=== PATIENT | female | born 1950 | race African-American/Black ===

== ENCOUNTER 2022-03-27 22:37 | Observation (INO) | payer MEDICARE ==
[2022-03-27] MEDS ORDERED: Senokot S 8.6-50 MG TAB PO PRN (22:50)
[2022-03-27] MEDS ORDERED: Ondansetron PF 4 MG/2 ML Vial IVP PRN (22:50)
[2022-03-27] MEDS ORDERED: HYDROcodone/Acetaminophen 5/325 mg Tablet PO PRN (22:50)
[2022-03-27] MEDS ORDERED: Acetaminophen 325 MG TAB PO PRN (22:50)
[2022-03-27] MEDS ORDERED: Calcium Carbonate 500 MG ChewTAB PO PRN (22:50)
[2022-03-27] MEDS ORDERED: Metoprolol Tartrate 25 MG TAB PO SCH (23:00)
[2022-03-27 23:22] VITALS: BMI 42.5
[2022-03-28 05:29] LABS: Anion Gap 12 mmol/L (10-20); BUN (Urea Nitrogen) 14 mg/dL (9.8-20.1); Calc. Creatinine Clearance 123 mL/min (70-130); Calcium 9.5 mg/dL (7.8-10.44); Carbon Dioxide 27 mmol/L (23-31); Chloride 107 mmol/L (98-107); Estimated GFR 88; Glucose 107 mg/dL (80-115); Magnesium 2.1 mg/dL (1.6-2.6); Phosphorus 4.1 mg/dL (2.3-4.7); Potassium 4.1 mmol/L (3.5-5.1); Sodium 142 mmol/L (136-145)
[2022-03-28] MEDS ORDERED: metFORMIN 500 MG TAB PO SCH (08:00)
[2022-03-28] MEDS ORDERED: Aspirin 81 mg Enteric Coated Tablet PO SCH (09:00)
[2022-03-28] MEDS ORDERED: Amlodipine 5 MG TAB PO SCH (09:00)
[2022-03-28] MEDS ORDERED: Famotidine 20 MG TAB PO SCH (09:00)
[2022-03-28] MEDS ORDERED: Valsartan 80 MG TAB PO SCH (09:00)
[2022-03-28] MEDS ORDERED: Ezetimibe 10 MG TAB PO SCH (09:00)
[2022-03-28] MEDS ORDERED: Enoxaparin Sodium 40 MG/0.4 ML SYRINGE SC SCH (09:00)
[2022-03-28 11:40] VITALS: BP 114/60; TEMP 97.4
== END 2022-03-28 12:50 | disposition home or self-care (01) ==
LOC: CSHTELE 22:37
PROVIDERS: ADMIT Student in an Organized Health Care Education/Training Program; ATTEND Internal Medicine
DX: R07.89 Other chest pain (principal); I95.9 Hypotension, unspecified; I49.3 Ventricular premature depolarization; R00.2 Palpitations; I16.0 Hypertensive urgency; I12.9 Hypertensive chronic kidney disease with stage 1 through stage 4 chronic kidney disease, or unspecified chronic kidney disease; E11.22 Type 2 diabetes mellitus with diabetic chronic kidney disease; N18.2 Chronic kidney disease, stage 2 (mild); E11.65 Type 2 diabetes mellitus with hyperglycemia; K21.9 Gastro-esophageal reflux disease without esophagitis; E78.5 Hyperlipidemia, unspecified; Z20.822 Contact with and (suspected) exposure to COVID-19; Z79.84 Long term (current) use of oral hypoglycemic drugs; Z79.899 Other long term (current) drug therapy; Z79.82 Long term (current) use of aspirin
CPT/HCPCS: 80048; 82962; 83735; 84100; 84443; 84484 ×2; U0003; U0005; 36415; 36416; G0378

== ENCOUNTER 2023-06-20 00:03 | Observation (INO) | payer OTHER ==
[2023-06-20 01:03] LABS: #Basophils 0.1 10x3/uL (0.0-0.2); #Eosinphils 0.1 10x3/uL (0.0-0.5); #Monocytes 0.6 10x3/uL (0.0-1.1); #Neutrophils 3.7 10x3/uL (1.5-8.4); %Basophils 1.1 % (0.0-2.0); %Eosinophils 1.5 % (0.0-6.0); %Lymphocytes 37.9 % (18.0-47.0); %Monocytes 8.2 % (0.0-10.0); Hematocrit 44.8 % (34.9-44.5); Hemoglobin 14.9 g/dL (12.0-15.5); Mean Corpuscular HGB CONC 33.3 g/dL (32.0-36.0); Mean Corpuscular Volume 90.3 fl (81.6-98.3); Mean Platelet Volume 10.6 fl (7.4-10.4); Platelet Count 443 10x3/uL (150-450); Red Blood Cell (RBC) Count 4.96 10x6/uL (3.90-5.03); White Blood Cell (WBC) Count 7.3 10x3/uL (3.5-10.5)
[2023-06-20] MEDS ORDERED: Aspirin Chewable 81 MG TAB ONE (01:32)
[2023-06-20 01:37] LABS: ALT (SGPT) 55 U/L (8-55); AST (SGOT) 37 U/L (5-34); Albumin 4.3 g/dL (3.4-4.8); Alkaline Phosphatase 108 U/L (40-110); Anion Gap 17 mmol/L (10-20); BUN (Urea Nitrogen) 11 mg/dL (9.8-20.1); Bilirubin, Total 0.3 mg/dL (0.2-1.2); Calc. Creatinine Clearance 0 mL/min (70-130); Calcium 9.9 mg/dL (7.8-10.44); Carbon Dioxide 25 mmol/L (23-31); Chloride 104 mmol/L (98-107); Estimated GFR 74; Globulin 3.5 g/dL (2.4-3.5); Glucose 122 mg/dL (83-110); Potassium 3.5 mmol/L (3.5-5.1); Protein, Total 7.8 g/dL (5.8-8.1); Sodium 142 mmol/L (136-145)
[2023-06-20 01:43] LABS: Troponin I Less than 0.010 ng/mL (< 0.028)
[2023-06-20 03:09] VITALS: BMI 41.1
[2023-06-20] MEDS ORDERED: Nitroglycerin 0.4 MG TAB (25 Tab Bottle) SL PRN (04:10)
[2023-06-20] MEDS ORDERED: Acetaminophen 325 MG TAB PO PRN (04:15)
[2023-06-20] MEDS ORDERED: tiZANidine HCl 4 MG TAB PO PRN (04:16)
[2023-06-20] MEDS ORDERED: Loratadine 10 MG TAB PO PRN (04:16)
[2023-06-20] MEDS ORDERED: Ketorolac Tromethamine 30 MG/ML VIAL IVP SCH (04:30)
[2023-06-20 05:56] LABS: Cardiac Risk 3.9 (Less than 4.5); Cholesterol 177 mg/dl (< 200 Desired); HDL Cholesterol 45 mg/dL (>60 Neg Risk); LDL Cholesterol, Calculated 110 mg/dL; Triglycerides 111 mg/dL (Less than 150)
[2023-06-20 06:06] LABS: Troponin I Less than 0.010 ng/mL (< 0.028)
[2023-06-20] MEDS ORDERED: Amlodipine 5 MG TAB PO SCH (07:30)
[2023-06-20] MEDS: metFORMIN 500 MG TAB PO SCH ×2 (08:13→20:50)
[2023-06-20] MEDS: Ezetimibe 10 MG TAB PO SCH (08:13)
[2023-06-20] MEDS ORDERED: Potassium Chloride 20 MEQ TAB PO SCH ×2 (10:00→21:00)
[2023-06-20] MEDS: Valsartan 80 MG TAB PO SCH (11:47)
[2023-06-20] MEDS ORDERED: cloNIDine 0.1 MG TAB PO PRN (12:10)
[2023-06-20 14:23] LABS: Bilirubin Neg (Negative); Blood, Urine Negative (Negative); Clarity Clear (Clear); Glucose, Urine (Dipstick) Normal (Negative); Ketone, Urine Negative (Negative); Leukocyte Negative (Negative); Nitrite Negative (Negative); Protein, Urine (Dipstick) 15 mg/dl (Neg-Trace); Specific Gravity, Urine 1.025 (1.005-1.030); Urobilinogen Normal mg/dL (Less than 2)
[2023-06-20] MEDS: Amlodipine 5 MG TAB PO SCH (20:49)
[2023-06-20] MEDS ORDERED: Aspirin Chewable 81 MG TAB PO SCH (21:00)
[2023-06-21 04:17] LABS: Anion Gap 13 mmol/L (10-20); BUN (Urea Nitrogen) 17 mg/dL (9.8-20.1); Calc. Creatinine Clearance 96 mL/min (70-130); Calcium 9.3 mg/dL (7.8-10.44); Carbon Dioxide 26 mmol/L (23-31); Chloride 106 mmol/L (98-107); Estimated GFR 69; Glucose 91 mg/dL (83-110); Potassium 4.8 mmol/L (3.5-5.1); Sodium 140 mmol/L (136-145)
[2023-06-21 08:21] VITALS: BP 133/68; TEMP 98.2
[2023-06-21] MEDS: Valsartan 80 MG TAB PO SCH (09:00)
[2023-06-21] MEDS: metFORMIN 500 MG TAB PO SCH (09:00)
[2023-06-21] MEDS ORDERED: Famotidine 20 MG TAB PO SCH (09:00)
[2023-06-21] MEDS: Amlodipine 5 MG TAB PO SCH (09:00)
[2023-06-21] MEDS: Ezetimibe 10 MG TAB PO SCH (09:03)
== END 2023-06-21 10:55 | disposition home or self-care (01) ==
LOC: CSHERS 00:03 → CSHTELE 02:07
PROVIDERS: ADMIT Family Medicine; ATTEND Internal Medicine
DX: R07.9 Chest pain, unspecified (principal); I16.0 Hypertensive urgency; I10 Essential (primary) hypertension; E11.9 Type 2 diabetes mellitus without complications; K21.9 Gastro-esophageal reflux disease without esophagitis; E78.2 Mixed hyperlipidemia; E87.6 Hypokalemia; I25.10 Atherosclerotic heart disease of native coronary artery without angina pectoris; E66.01 Morbid (severe) obesity due to excess calories; Z68.41 Body mass index [BMI] 40.0-44.9, adult; Z90.710 Acquired absence of both cervix and uterus; Z88.5 Allergy status to narcotic agent; Z88.8 Allergy status to other drugs, medicaments and biological substances; Z79.82 Long term (current) use of aspirin; Z79.84 Long term (current) use of oral hypoglycemic drugs; Z79.899 Other long term (current) drug therapy; Z90.89 Acquired absence of other organs; Z95.5 Presence of coronary angioplasty implant and graft
CPT/HCPCS: 36415; 36416; 70450; 71045; 80048; 80053; 80061; 81003; 83735; 84484; 85025; 93005; 93010; 93306; 96372; 96375; G0378; J1650; J1885